=== PATIENT | female | born 1960 | race Caucasian/White ===

== ENCOUNTER → 2016-10-02 | Outpatient (CLI) | payer OTHER ==
[2016-02-22 15:00] VITALS: BP 140/72
[~2016-10-02] MED LIST: ALBU2.5V14 NEB; ARIP10TA13 PO; ASPI81TA2 PO; ATOR20TA PO; BREO ELLIPTA 11 EACH IH; CEFA1VIA2 IV; CELE200C PO; CITA20TA5 PO; CLON0.5T3 PO; CLON1TAB3 PO; CLON2TAB PO; CODE30SO PO; CYCL10TA2 PO; DICL100G7 TP; DIPH25CA58 PO; DOCU-27 PO; FAMO-63 PO; FURO-68 PO; FURO-69 PO; GADOBUTROL 7.5 MMOL/7.5 ML VIAL IV ONE; GUAI400T27 PO; HYDR-971 PO; HYDR1TAB14 PO; MELO7.5T5 PO; METO-269 PO; METO25TA4 PO; MONT10TA9 PO; MORP15TA3 PO; PANT40TA5 PO; POTA10TA12 PO; POTA20TA84 PO; PRED-220 PO; PRED20TA PO; RANO500T2 PO; ROFL500T7 PO; SUCR1TAB PO; TIOT18CA IH; TRAM50TA PO; TRAZ150T55 PO; ZOLP5TAB PO
--- NOTE | 2016-10-02 13:17 | RAD ---
MR ORBITS HISTORY: DIPLOPIA WITH INCREASED HEADACHES, NKI, NO SX HX, NO PRIORS, 6ML GADAVIST Technique: Sagittal T1, axial T2, and axial FLAIR images of the entire brain were obtained. Additional 3 mm axial and 4 mm coronal T1-weighted images were obtained through the region of the orbits. 3 mm coronal T2 and inversion recovery images were also obtained through the region of the orbits. 4 mm coronal and 3 mm axial T1 fat saturation images were obtained through the region of the orbits after the administration of intravenous gadolinium-based contrast material. Additional axial T1-weighted images through the entire brain were also obtained after the administration of intravenous contrast material. FINDINGS: The globes are unremarkable. There is no abnormality identified of the optic nerves. The optic nerves are symmetric, within normal limits for size, and without regions of abnormal enhancement seen. The extraocular muscles are not enlarged. The orbital fat is preserved. There is no compression at the orbital apex. No mass lesion is seen. Lacrimal glands are within normal limits. No abnormality of either cavernous sinus is identified. The chiasm is within normal limits without evidence of displacement or compression. No abnormality of the optic tracts is seen. No regions of abnormal signal are seen within the brain parenchyma. There is no abnormal enhancement identified. No restricted diffusion is seen to indicate an acute infarct. There is no evidence of intracranial hemorrhage. Specifically, no abnormal susceptibility is seen on gradient echo images to indicate a microhemorrhage. No extra-axial fluid collections are identified. There is no mass effect or midline shift. Ventricular size is within normal limits. Midline structures have a normal anatomic configuration. Pituitary gland and infundibulum are within normal limits. Basal cisterns are patent. Flow voids are preserved at the skull base. Cerebellum and posterior fossa structures are unremarkable. There is mucoperiosteal thickening of the left maxillary sinus and bilateral mastoid effusions. IMPRESSION: No acute or recent infarct. No abnormal enhancement or mass. No gross abnormality of the globes or orbits although there is degradation of detail from motion artifact on some of the orbital focused sequences. There is also normal appearance of the optic chiasm and optic pathways brain. Electronically signed by: Al Cerda MD (10/02/2016 1:13 PM)
== END | disposition home or self-care (01) ==
LOC: MRI 10:12
PROVIDERS: ATTEND Optometrist
DX: H53.2 Diplopia (principal)
CPT/HCPCS: 70553; A9585

== ENCOUNTER → 2017-01-09 | Outpatient (CLI) | payer OTHER ==
[2016-02-22 15:00] VITALS: BP 140/72
[~2017-01-09] MED LIST changes: -ARIP10TA13 PO; +ARIP10TA9 PO; +ASPI-630 PO; -ASPI81TA2 PO; +DICL100G18 TP; -DICL100G7 TP; +DOCU-109 PO; -DOCU-27 PO; -GADOBUTROL 7.5 MMOL/7.5 ML VIAL IV ONE; -GUAI400T27 PO; +GUAI400T63 PO; +TRAZ150T49 PO; -TRAZ150T55 PO
--- NOTE | 2017-01-09 14:50 | RAD ---
DATE: 01/09/2017 EXAM: DIGITAL SCREEN BILAT W/CAD HISTORY: Screening baseline exam COMPARISON: None available This study was interpreted with the benefit of Computerized Aided Detection (CAD). FINDINGS: Breast Density: SCATTERED The breast parenchyma shows scattered fibroglandular densities. Breast parenchyma level B. 2 small asymmetry is identified in the right outer breast best seen on cc view. A small mass or lymph node identified in the left inner lower breast. IMPRESSION: 2 small asymmetries identified in the right outer breast seen on the cc view and a small mass or lymph node identified in the left inner lower breast.. Recommend spot compression view of the right breast in CC, ML view and left breast in CC, MLO views . If this persists on the spot views, ultrasound is recommended. BI-RADS CATEGORY: 0 INCOMPLETE: NEEDS ADDITIONAL IMAGING EVALUATION AND/OR PRIOR MAMMOGRAMS FOR COMPARISON. RECOMMENDED FOLLOW-UP: ADD ADDITIONAL IMAGING PQRS compliance statement: Patient information was entered into a reminder system with a target due date immediate recall for the next mammogram. Mammography is a sensitive method for finding small breast cancers, but it does not detect them all and is not a substitute for careful clinical examination. A negative mammogram does not negate a clinically suspicious finding and should not result in delay in biopsying a clinically suspicious abnormality. "Our facility is accredited by the [employer] Mammography Program."
== END | disposition home or self-care (01) ==
LOC: MAMMO 13:00
DX: Z12.31 Encounter for screening mammogram for malignant neoplasm of breast (principal)
CPT/HCPCS: G0202; 77067

== ENCOUNTER → 2017-01-17 | Outpatient (CLI) | payer OTHER ==
[2016-02-22 15:00] VITALS: BP 140/72
--- NOTE | 2017-01-20 08:30 | RAD ---
DATE: 01/17/2018 EXAM: DIGITAL DIAGNOSTIC BILATERAL, BREAST BILATERAL HISTORY: Possible abnormality seen on screening COMPARISON: Screening examination 8 days earlier FINDINGS: Breast Density: . An ML view of the left breast was obtained as well as a coned compression view. Best seen on the cone compression cc view is a well-defined mass medially in the breast having very benign features mammography. There is a well-defined mass inferiorly in the breast on the ML view which likely corresponds to the finding on the cc view. In the right breast coned compression cc and MLO views were obtained as well as an ML view. There are well-defined densities in the upper outer aspect of the breast Targeted ultrasound of the breasts was performed. The right breast was examined from the 9 to the 12:00 position. There is a benign-appearing septated 11 mm mass at the 11:00 position of the breast approximately 1 cm from the nipple. This likely does not correspond to any mammographic finding. The left breast was examined from the C7 to the 8:00 position. There is a small hypoechoic mass seen 3 cm from the nipple having a benign appearance as on ultrasound measuring approximately 3 mm. IMPRESSION: Probable benign findings on ultrasound and mammography. Bilateral mammography is suggested in 6 months to document stability BI-RADS CATEGORY: 3 PROBABLE BENIGN FINDING(S-SHORT INTERVAL FOLLOW-UP SUGGESTED RECOMMENDED FOLLOW-UP: 6M 6 MONTH FOLLOW-UP PQRS compliance statement: Patient information was entered into a reminder system with a target due date 07/17/2017 for the next mammogram. Mammography is a sensitive method for finding small breast cancers, but it does not detect them all and is not a substitute for careful clinical examination. A negative mammogram does not negate a clinically suspicious finding and should not result in delay in biopsying a clinically suspicious abnormality. "Our facility is accredited by the [employer] Mammography Program." MTDD
== END | disposition home or self-care (01) ==
LOC: MAMMO 10:00
DX: R92.8 Other abnormal and inconclusive findings on diagnostic imaging of breast (principal)
CPT/HCPCS: 76641; G0204; 77066

== ENCOUNTER → 2017-03-14 | Day surgery (SDC) | payer OTHER ==
[~2017-03-14] MED LIST changes: -ALBU2.5V14 NEB; -ARIP10TA9 PO; -ASPI-630 PO; -ATOR20TA PO; -BREO ELLIPTA 11 EACH IH; -CEFA1VIA2 IV; -CELE200C PO; -CITA20TA5 PO; -CLON0.5T3 PO; -CLON1TAB3 PO; -CLON2TAB PO; -CODE30SO PO; -CYCL10TA2 PO; -DICL100G18 TP; -DIPH25CA58 PO; -DOCU-109 PO; -FAMO-63 PO; -FURO-68 PO; -FURO-69 PO; -GUAI400T63 PO; -HYDR-971 PO; -HYDR1TAB14 PO; +HYDROmorphone 2 MG/ML VIAL IV; +IV RINGERS,LACTATED 1000ML 1,000 ML IV; +LIDOCAINE 1% PF 2 ML VIAL. ID; -MELO7.5T5 PO; -METO-269 PO; -METO25TA4 PO; -MONT10TA9 PO; -MORP15TA3 PO; +MORPHINE SULFATE 4 MG/ML DISP.SYRIN. IV; -PANT40TA5 PO; -POTA10TA12 PO; -POTA20TA84 PO; -PRED-220 PO; -PRED20TA PO; +PROCHLORPERAZINE 10 MG/2 ML VIAL. IV; +PROPOFOL 20 ML IV; -RANO500T2 PO; -ROFL500T7 PO; -SUCR1TAB PO; -TIOT18CA IH; -TRAM50TA PO; -TRAZ150T49 PO; -ZOLP5TAB PO; +fentaNYL PF VIAL 100 MCG/2 ML VIAL IV
[2017-03-14] MEDS: IV RINGERS,LACTATED 1000ML 1,000 ML IV (09:18)
== END | disposition home or self-care (01) ==
LOC: ENDOS 08:40
DX: K22.2 Esophageal obstruction (principal); K29.50 Unspecified chronic gastritis without bleeding; K21.0 Gastro-esophageal reflux disease with esophagitis; D64.9 Anemia, unspecified; F41.9 Anxiety disorder, unspecified; M19.90 Unspecified osteoarthritis, unspecified site; F32.9 Major depressive disorder, single episode, unspecified; J44.9 Chronic obstructive pulmonary disease, unspecified; E78.00 Pure hypercholesterolemia, unspecified; I10 Essential (primary) hypertension; F17.210 Nicotine dependence, cigarettes, uncomplicated; Z80.3 Family history of malignant neoplasm of breast; Z82.49 Family history of ischemic heart disease and other diseases of the circulatory system; Z79.899 Other long term (current) drug therapy; Z91.040 Latex allergy status; Z88.2 Allergy status to sulfonamides; Z88.8 Allergy status to other drugs, medicaments and biological substances; Z98.890 Other specified postprocedural states
CPT/HCPCS: 43239; 88305; 88312; J2704

== ENCOUNTER 2017-05-26 05:58 | Emergency (ER) | payer OTHER ==
[2017-05-26] MEDS ORDERED: LIDOCAINE WITH 8.4% SOD BICARB 3 ML DISP.SYRIN. ×2 (06:20)
[2017-05-26] MEDS: DIPHTH,PERTUSS(ACELL),TET TOX 0.5 ML DISP.SYRIN. VAX IM ×2 (06:50)
[2017-05-26] MEDS: LIDOCAINE WITH 8.4% SOD BICARB 3 ML DISP.SYRIN. INJ ×2 (06:52)
[2017-05-26] MEDS: NEOMY/BACITR/POLYMYXIN OINT PACKET. TP ×2 (07:19)
[2017-05-26] MEDS: CEPHALEXIN 250 MG CAPSULE. PO ×2 (07:19)
== END 2017-05-26 07:46 | disposition home or self-care (01) ==
LOC: ER 05:58
DX: S81.012A Laceration without foreign body, left knee, initial encounter (principal); Z88.1 Allergy status to other antibiotic agents; Z88.2 Allergy status to sulfonamides; Z88.5 Allergy status to narcotic agent; Z91.040 Latex allergy status; E78.00 Pure hypercholesterolemia, unspecified; G89.29 Other chronic pain; J44.9 Chronic obstructive pulmonary disease, unspecified; K21.9 Gastro-esophageal reflux disease without esophagitis; I50.9 Heart failure, unspecified; W18.39XA Other fall on same level, initial encounter; Y93.89 Activity, other specified; Y99.8 Other external cause status; Y92.89 Other specified places as the place of occurrence of the external cause
CPT/HCPCS: 12002; 73562; 90471; 90715; 99284-25

== ENCOUNTER 2017-08-01 09:32 | Inpatient (IN) | payer OTHER ==
[2017-08-01] MEDS: IPRATRPIUM/ALBUTEROL 0.5/2.5MG 3 ML NEBU. NEB (10:00)
[2017-08-01 10:03] LABS: ADD MAN DIFF? NO
[2017-08-01 10:05] LABS: BASO # 0.1 x10^3/uL (0.0-0.2); BASO % 1 % (0-3); EOS # 0.2 x10^3/uL (0.0-0.7); EOS % 3 % (0-3); HEMATOCRIT 36.7 % (36.0-47.0); HEMOGLOBIN 11.5 g/dL (12.0-15.5); LYMPH # 2.3 x10^3/uL (1.0-4.8); LYMPH % 28 % (24-48); MEAN CORPUSCULAR HEMOGLOBIN 26 pg (25-35); MEAN CORPUSCULAR HGB CONC 31 g/dL (31-37); MEAN CORPUSCULAR VOLUME 81 fL (79-100); MONO # 0.8 x10^3/uL (0.0-1.1); MONO % 10 % (0-9); NEUT # 4.8 x10^3uL (1.8-7.7); NEUT % 59 % (31-73); PLATELET COUNT 170 x10^3/uL (140-400); RED BLOOD COUNT 4.53 x10^6/uL (3.50-5.40); WHITE BLOOD COUNT 8.2 x10^3/uL (4.0-11.0)
[2017-08-01 10:25] LABS: BASE EXCESS ABG 4 mmol/L (-3-3); HCO3 ABG 30 mmol/L (21-28); PCO2 ABG 47 mmHg (35-46); PH ABG 7.42 (7.35-7.45); PO2 ABG 62 mmHg (75-108); SAT O2 ABG 91 % (92-99)
[2017-08-01 10:26] LABS: TROPONINI < 0.017 ng/mL (0.000-0.055)
[2017-08-01 10:29] LABS: NT-PRO BNP 100 pg/mL (0-124)
[2017-08-01 10:30] LABS: FIO2 ABG 28
[2017-08-01] MEDS: IV NORMAL SALINE 1000ML BAG 1,000 ML IV ×3 (10:33→16:06)
[2017-08-01 10:41] LABS: ANION GAP 4 (6-14); BLOOD UREA NITROGEN 5 mg/dL (7-20); BUN/CREATININE RATIO 6 (6-20); CALCIUM 8.6 mg/dL (8.5-10.1); CARBON DIOXIDE 32 mmol/L (21-32); CHLORIDE 102 mmol/L (98-107); CREATININE 0.9 mg/dL (0.6-1.0); GFR 64.3; GLUCOSE 81 mg/dL (70-99); POTASSIUM 3.4 mmol/L (3.5-5.1); SODIUM 138 mmol/L (136-145)
[2017-08-01 10:47] LABS: ALBUMIN/GLOBULIN RATIO 0.8 (1.0-1.7); ALK PHOS 74 U/L (46-116); ALT (SGPT) 38 U/L (14-59); AST (SGOT) 18 U/L (15-37); MAGNESIUM 1.8 mg/dL (1.8-2.4); TOTAL BILIRUBIN 0.5 mg/dL (0.2-1.0); TOTAL PROTEIN 6.7 g/dL (6.4-8.2)
[2017-08-01 11:05] LABS: BILIRUBIN,URINE NEGATIVE (NEG); CLARITY,URINE CLEAR; COLOR,URINE AMBER; GLUCOSE,URINE NEGATIVE (NEG); NITRITE,URINE NEGATIVE (NEG); PROTEIN,URINE NEGATIVE (NEG-TRACE); UROBILINOGEN,URINE 0.2 mg/dL (0.2 mg/dL)
[2017-08-01 11:19] LABS: BACTERIA,URINE 0 /HPF (0-FEW); HYALINE CASTS, URINE MODERATE /HPF; RBC,URINE 0 /HPF (0-2); SQUAMOUS EPITHELIAL CELL,UR FEW /LPF; WBC,URINE OCC /HPF (0-4)
[2017-08-01] MEDS: traMADol 50 MG TABLET PO ×2 (14:00→14:19)
[2017-08-01] MEDS: diphenhydrAMINE HCL 25 MG CAPSULE PO ×2 (14:00→22:18)
[2017-08-01] MEDS ORDERED: PANTOPRAZOLE 40 MG TABLET.DR. PO (14:00)
[2017-08-01] MEDS: ASPIRIN CHEWABLE 81 MG TABLET. PO (14:00)
[2017-08-01] MEDS ORDERED: CYCLOBENZAPRINE 10 MG TABLET. PO (14:00)
[2017-08-01] MEDS: RANOLAZINE 500 MG TAB.ER.12H PO (14:00)
[2017-08-01] MEDS: clonazePAM 1 MG TABLET PO ×2 (14:00→22:14)
[2017-08-01] MEDS: DICLOFENAC SODIUM 1% TOPICAL GEL 100GM TUBE. TP ×3 (14:00→22:13)
[2017-08-01] MEDS: ARIPiprazole 5 MG TABLET PO (14:00)
[2017-08-01] MEDS: ROFLUMILAST 500 MCG TABLET. PO (14:00)
[2017-08-01] MEDS: MORPHINE ER 15 MG TABLET.ER PO ×2 (14:00→22:14)
[2017-08-01] MEDS: DOCUSATE SODIUM 100 MG CAPSULE. PO (14:00)
[2017-08-01] MEDS ORDERED: CITALOPRAM 20 MG TABLET. PO (14:00)
[2017-08-01] MEDS: predniSONE 10 MG TABLET PO (14:00)
[2017-08-01] MEDS ORDERED: ONDANSETRON PF 4 MG/2 ML VIAL. IV (14:15)
[2017-08-01] MEDS ORDERED: PROCHLORPERAZINE 10 MG/2 ML VIAL. IV (14:30)
[2017-08-01] MEDS ORDERED: PROMETHAZINE 12.5 MG TABLET. PO (14:30)
[2017-08-01] MEDS ORDERED: PROMETHAZINE 12.5 MG in IV DEXTROSE 5% 50 ML IV (14:30)
[2017-08-01] MEDS: PROCHLORPERAZINE 5 MG TABLET. PO (14:57)
[2017-08-01] MEDS: ALBUTEROL SULFATE 2.5 MG/3 ML NEBU. NEB ×2 (15:08→19:45)
[2017-08-01] MEDS: IOHEXOL 240 MG/ML 50ML VIAL. IV (16:00)
[2017-08-01] MEDS ORDERED: SUCRALFATE 1 GM TABLET. PO (16:30)
[2017-08-01] MEDS ORDERED: POTASSIUM CHLORIDE 10 MEQ TABLET.ER. PO (17:00)
[2017-08-01 17:10] LABS: TROPONINI < 0.017 ng/mL (0.000-0.055)
[2017-08-01] MEDS: POTASSIUM CHLORIDE 20 MEQ TABLET.ER. PO (17:58)
[2017-08-01] MEDS: CETIRIZINE HCL 10 MG TABLET. PO (17:58)
[2017-08-01] MEDS: FLUTICASONE 50MCG/NASAL SPRAY 16GM BOTTLE. NS (18:01)
[2017-08-01] MEDS: IOHEXOL 300 MG/ML 100ML VIAL. IV (18:02)
[2017-08-01] MEDS: BUDESONIDE 0.5 MG/2 ML NEBU. NEB (19:45)
[2017-08-01] MEDS: tiZANidine 4 MG TABLET. PO (22:13)
[2017-08-01] MEDS: ATORVASTATIN CALCIUM 20 MG TABLET PO (22:13)
[2017-08-01] MEDS: FAMOTIDINE 20 MG TABLET. PO (22:14)
[2017-08-01] MEDS: traZODone 50 MG TABLET. PO (22:14)
[2017-08-01] MEDS: MONTELUKAST SODIUM 10 MG TABLET. PO (22:14)
[2017-08-02] MEDS: IV NORMAL SALINE 1000ML BAG 1,000 ML IV (03:00)
[2017-08-02] MEDS: traMADol 50 MG TABLET PO ×2 (03:00→14:52)
[2017-08-02] MEDS: ALBUTEROL SULFATE 2.5 MG/3 ML NEBU. NEB ×2 (08:14→11:33)
[2017-08-02] MEDS: BUDESONIDE 0.5 MG/2 ML NEBU. NEB (08:14)
[2017-08-02] MEDS ORDERED: NON FORMULARY ITEM (Fluticasone/Vilanterol (Breo Ellipta 100-25 Mcg Inh) 1 PUFF) IH (09:00)
[2017-08-02] MEDS ORDERED: CITALOPRAM HYDROBROMIDE PO (09:00)
[2017-08-02 09:15] LABS: ANION GAP 9 (6-14); BLOOD UREA NITROGEN 3 mg/dL (7-20); CALCIUM 7.4 mg/dL (8.5-10.1); CARBON DIOXIDE 25 mmol/L (21-32); CHLORIDE 111 mmol/L (98-107); CREATININE 0.8 mg/dL (0.6-1.0); GFR 73.7; GLUCOSE 125 mg/dL (70-99); POTASSIUM 3.6 mmol/L (3.5-5.1); SODIUM 145 mmol/L (136-145)
[2017-08-02] MEDS: DOCUSATE SODIUM 100 MG CAPSULE. PO (09:28)
[2017-08-02] MEDS: clonazePAM 1 MG TABLET PO (09:28)
[2017-08-02] MEDS: ASPIRIN CHEWABLE 81 MG TABLET. PO (09:28)
[2017-08-02] MEDS: tiZANidine 4 MG TABLET. PO (09:28)
[2017-08-02] MEDS: ROFLUMILAST 500 MCG TABLET. PO (09:28)
[2017-08-02] MEDS: CETIRIZINE HCL 10 MG TABLET. PO (09:28)
[2017-08-02] MEDS: CITALOPRAM 20 MG TABLET. PO (09:29)
[2017-08-02] MEDS: MORPHINE ER 15 MG TABLET.ER PO (09:29)
[2017-08-02] MEDS: ARIPiprazole 5 MG TABLET PO (09:29)
[2017-08-02] MEDS: predniSONE 10 MG TABLET PO (09:30)
[2017-08-02] MEDS: FLUTICASONE 50MCG/NASAL SPRAY 16GM BOTTLE. NS (12:03)
[2017-08-02] MEDS: DICLOFENAC SODIUM 1% TOPICAL GEL 100GM TUBE. TP ×2 (12:03→13:00)
[2017-08-02] MEDS ORDERED: diphenhydrAMINE HCL 25 MG CAPSULE PO (21:00)
== END 2017-08-02 15:00 | disposition home or self-care (01) | DRG 314 ==
LOC: ER 09:32 → 5 SOUTH 11:33
DX: I95.9 Hypotension, unspecified (principal); G93.41 Metabolic encephalopathy; E44.0 Moderate protein-calorie malnutrition; I11.0 Hypertensive heart disease with heart failure; J96.11 Chronic respiratory failure with hypoxia; I50.9 Heart failure, unspecified; A08.4 Viral intestinal infection, unspecified; E78.00 Pure hypercholesterolemia, unspecified; E86.0 Dehydration; E87.6 Hypokalemia; F41.0 Panic disorder [episodic paroxysmal anxiety]; G89.29 Other chronic pain; I25.10 Atherosclerotic heart disease of native coronary artery without angina pectoris; J32.0 Chronic maxillary sinusitis; J44.9 Chronic obstructive pulmonary disease, unspecified; F32.9 Major depressive disorder, single episode, unspecified; M19.90 Unspecified osteoarthritis, unspecified site; K21.9 Gastro-esophageal reflux disease without esophagitis; Z82.49 Family history of ischemic heart disease and other diseases of the circulatory system; Z99.81 Dependence on supplemental oxygen; Z88.2 Allergy status to sulfonamides; Z88.8 Allergy status to other drugs, medicaments and biological substances; Z88.1 Allergy status to other antibiotic agents; Z91.040 Latex allergy status; Z68.26 Body mass index [BMI] 26.0-26.9, adult
CPT/HCPCS: 36415; 36600; 70450; 71045; 74177; 80048; 80053; 81001; 82533; 82805; 83605; 83735; 83880; 84484; 85025; 85610; 87045; 93005; 94640; 94760; J7030; J7512; J7613; J7620; J7626; Q0163; Q0164; Q9966; Q9967

== ENCOUNTER → 2017-09-24 | Outpatient (CLI) | payer OTHER ==
[2017-09-24] MEDS: REGADENOSON 0.4 MG/5 ML DISP.SYRIN. IV (11:38)
== END | disposition home or self-care (01) ==
LOC: NM 09:07
DX: R07.89 Other chest pain (principal); F17.210 Nicotine dependence, cigarettes, uncomplicated; I13.0 Hypertensive heart and chronic kidney disease with heart failure and stage 1 through stage 4 chronic kidney disease, or unspecified chronic kidney disease; I50.9 Heart failure, unspecified; N18.4 Chronic kidney disease, stage 4 (severe); J44.9 Chronic obstructive pulmonary disease, unspecified
CPT/HCPCS: 78452; 93017; 96374; 96375; 96376; A9500; J2785

== ENCOUNTER 2017-11-24 14:22 | Inpatient (IN) | payer OTHER ==
[2017-11-24] MEDS: fentaNYL PF VIAL 100 MCG/2 ML VIAL IV (14:45)
[2017-11-24 14:53] LABS: BILIRUBIN,URINE NEGATIVE (NEG); CLARITY,URINE CLEAR; COLOR,URINE YELLOW; GLUCOSE,URINE NEGATIVE (NEG); NITRITE,URINE NEGATIVE (NEG); PROTEIN,URINE NEGATIVE (NEG-TRACE); UROBILINOGEN,URINE 0.2 mg/dL (0.2 mg/dL)
[2017-11-24 15:06] LABS: BACTERIA,URINE FEW /HPF (0-FEW); BASE EXCESS ABG 14 mmol/L (-3-3); HCO3 ABG 42 mmol/L (21-28); HYALINE CASTS, URINE MODERATE /HPF; PH ABG 7.42 (7.35-7.45); PO2 ABG 63 mmHg (65-108); RBC,URINE OCC /HPF (0-2); SAT O2 ABG 90 % (92-99); SQUAMOUS EPITHELIAL CELL,UR MOD /LPF; YEAST,URINE PRESENT /HPF
[2017-11-24 15:10] LABS: PCO2 ABG 67 mmHg (35-46)
[2017-11-24] MEDS: methylPREDNISolone SOD SUCC PF 125 MG/2 ML VIAL. IV ×2 (15:21→20:57)
[2017-11-24 15:22] LABS: BASO % 0 % (0-3); EOS % 0 % (0-3); HEMATOCRIT 40.1 % (36.0-47.0); HEMOGLOBIN 12.7 g/dL (12.0-15.5); LYMPH # 0.5 x10^3/uL (1.0-4.8); LYMPH % 8 % (24-48); MEAN CORPUSCULAR HEMOGLOBIN 26 pg (25-35); MEAN CORPUSCULAR HGB CONC 32 g/dL (31-37); MEAN CORPUSCULAR VOLUME 81 fL (79-100); MONO # 0.4 x10^3/uL (0.0-1.1); MONO % 6 % (0-9); NEUT # 5.9 x10^3uL (1.8-7.7); NEUT % 86 % (31-73); PLATELET COUNT 163 x10^3/uL (140-400); RED BLOOD COUNT 4.95 x10^6/uL (3.50-5.40); RED CELL DISTRIBUTION WIDTH 17.2 % (11.5-14.5); WHITE BLOOD COUNT 6.9 x10^3/uL (4.0-11.0)
[2017-11-24] MEDS: IPRATRPIUM/ALBUTEROL 0.5/2.5MG 3 ML NEBU. NEB ×2 (15:25→19:32)
[2017-11-24 15:27] LABS: ADD MAN DIFF? YES
[2017-11-24 15:35] LABS: ALBUMIN 3.5 g/dL (3.4-5.0); ALK PHOS 78 U/L (46-116); ALT (SGPT) 17 U/L (14-59); ANION GAP 6 (6-14); AST (SGOT) 14 U/L (15-37); BLOOD UREA NITROGEN 13 mg/dL (7-20); BUN/CREATININE RATIO 12 (6-20); CALCIUM 9.2 mg/dL (8.5-10.1); CARBON DIOXIDE 42 mmol/L (21-32); CHLORIDE 95 mmol/L (98-107); CREATININE 1.1 mg/dL (0.6-1.0); GFR 50.8; GLUCOSE 124 mg/dL (70-99); SODIUM 143 mmol/L (136-145); TOTAL BILIRUBIN 0.4 mg/dL (0.2-1.0); TOTAL PROTEIN 6.9 g/dL (6.4-8.2)
[2017-11-24 15:37] LABS: POTASSIUM 2.2 mmol/L (3.5-5.1)
[2017-11-24 15:43] LABS: TROPONINI < 0.017 ng/mL (0.000-0.055)
[2017-11-24 15:52] LABS: MAGNESIUM 1.7 mg/dL (1.8-2.4)
[2017-11-24] MEDS: IV NORMAL SALINE 1000ML BAG 1,000 ML IV ×2 (15:53→22:00)
[2017-11-24 15:54] LABS: PROTHROMBIN TIME PATIENT 12.9 SEC (11.7-14.0)
[2017-11-24] MEDS: POTASSIUM CHLORIDE 20 MEQ TABLET.ER. PO (16:07)
[2017-11-24 16:11] LABS: CKMB MASS < 0.5 ng/mL (0.0-3.6); CREATINE KINASE 22 U/L (26-192)
[2017-11-24 16:11] LABS: NT-PRO BNP 75 pg/mL (0-124)
[2017-11-24 16:12] LABS: % LYMPHS 8 % (24-48); % MONOS 6 % (0-10); % SEGS 86 % (35-66)
[2017-11-24 16:13] LABS: PLT ESTIMATE ADEQUATE (ADEQUATE)
[2017-11-24] MEDS: POTASSIUM CHLORIDE 10MEQ 100 ML IV ×4 (16:18→22:00)
[2017-11-24] MEDS: POTASSIUM CHLORIDE 20 MEQ/15 ML ORAL LIQUID. PO (16:22)
[2017-11-24] MEDS ORDERED: ALBUTEROL SULFATE 2.5 MG/3 ML NEBU. NEB (17:45)
[2017-11-24] MEDS ORDERED: ONDANSETRON ODT 4 MG TAB.RAPDIS. PO (18:15)
[2017-11-24] MEDS: cefTRIAXone IV Push 1 GM VIAL. IVP (18:58)
[2017-11-24] MEDS: MAGNESIUM SULFATE 1GM 100 ML IV (18:59)
[2017-11-24] MEDS: MONTELUKAST SODIUM 10 MG TABLET. PO (20:55)
[2017-11-24] MEDS: traZODone 50 MG TABLET. PO (20:55)
[2017-11-24] MEDS: clonazePAM 1 MG TABLET PO (20:55)
[2017-11-24] MEDS: ATORVASTATIN CALCIUM 20 MG TABLET PO (20:56)
[2017-11-24] MEDS: tiZANidine 4 MG TABLET. PO (20:56)
[2017-11-24] MEDS: CELECOXIB 100 MG CAPSULE. PO (20:56)
[2017-11-24] MEDS: MORPHINE ER 15 MG TABLET.ER PO (20:57)
[2017-11-24] MEDS: FAMOTIDINE 20 MG TABLET. PO (20:57)
[2017-11-25] MEDS: traMADol 50 MG TABLET PO (02:31)
[2017-11-25 04:52] LABS: ADD MAN DIFF? NO
[2017-11-25 04:57] LABS: BASO % 0 % (0-3); EOS % 0 % (0-3); HEMATOCRIT 36.7 % (36.0-47.0); HEMOGLOBIN 11.8 g/dL (12.0-15.5); LYMPH # 0.4 x10^3/uL (1.0-4.8); LYMPH % 7 % (24-48); MEAN CORPUSCULAR HEMOGLOBIN 26 pg (25-35); MEAN CORPUSCULAR HGB CONC 32 g/dL (31-37); MEAN CORPUSCULAR VOLUME 81 fL (79-100); MONO # 0.1 x10^3/uL (0.0-1.1); MONO % 2 % (0-9); NEUT % 91 % (31-73); PLATELET COUNT 153 x10^3/uL (140-400); RED BLOOD COUNT 4.53 x10^6/uL (3.50-5.40); RED CELL DISTRIBUTION WIDTH 17.7 % (11.5-14.5); WHITE BLOOD COUNT 5.5 x10^3/uL (4.0-11.0)
[2017-11-25 05:25] LABS: ALBUMIN 2.9 g/dL (3.4-5.0); ALK PHOS 67 U/L (46-116); ALT (SGPT) 15 U/L (14-59); ANION GAP 5 (6-14); AST (SGOT) 9 U/L (15-37); BLOOD UREA NITROGEN 9 mg/dL (7-20); BUN/CREATININE RATIO 10 (6-20); CALCIUM 8.7 mg/dL (8.5-10.1); CARBON DIOXIDE 38 mmol/L (21-32); CHLORIDE 101 mmol/L (98-107); CREATININE 0.9 mg/dL (0.6-1.0); GFR 64.1; GLUCOSE 145 mg/dL (70-99); MAGNESIUM 2.4 mg/dL (1.8-2.4); POTASSIUM 3.1 mmol/L (3.5-5.1); SODIUM 144 mmol/L (136-145); TOTAL BILIRUBIN 0.3 mg/dL (0.2-1.0); TOTAL PROTEIN 5.9 g/dL (6.4-8.2)
[2017-11-25] MEDS: CITALOPRAM 20 MG TABLET. PO (08:32)
[2017-11-25] MEDS: ASPIRIN CHEWABLE 81 MG TABLET. PO (08:33)
[2017-11-25] MEDS: clonazePAM 1 MG TABLET PO ×2 (08:33→20:29)
[2017-11-25] MEDS: FUROSEMIDE 20 MG TABLET PO (08:33)
[2017-11-25] MEDS: MORPHINE ER 15 MG TABLET.ER PO ×2 (08:33→20:29)
[2017-11-25] MEDS: diphenhydrAMINE HCL 25 MG CAPSULE PO (08:33)
[2017-11-25] MEDS: POTASSIUM CHLORIDE 20 MEQ TABLET.ER. PO (08:33)
[2017-11-25] MEDS: PANTOPRAZOLE 40 MG TABLET.DR. PO (08:34)
[2017-11-25] MEDS: tiZANidine 4 MG TABLET. PO ×2 (08:34→20:28)
[2017-11-25] MEDS: DOCUSATE SODIUM 100 MG CAPSULE. PO (08:34)
[2017-11-25] MEDS: ROFLUMILAST 500 MCG TABLET. PO (08:34)
[2017-11-25] MEDS: CELECOXIB 100 MG CAPSULE. PO ×2 (08:40→20:29)
[2017-11-25] MEDS: methylPREDNISolone SOD SUCC PF 125 MG/2 ML VIAL. IV ×2 (08:46→20:30)
[2017-11-25] MEDS: IPRATRPIUM/ALBUTEROL 0.5/2.5MG 3 ML NEBU. NEB ×4 (09:04→19:53)
[2017-11-25] MEDS: ARIPiprazole 5 MG TABLET PO (12:37)
[2017-11-25] MEDS ORDERED: ONDANSETRON PF 4 MG/2 ML VIAL. IV (15:15)
[2017-11-25] MEDS ORDERED: NICOTINE 21MG PATCH. TD (15:15)
[2017-11-25] MEDS ORDERED: ONDANSETRON ODT 4 MG TAB.RAPDIS. PO (15:15)
[2017-11-25] MEDS: IV NORMAL SALINE 1000ML BAG 1,000 ML IV (15:57)
[2017-11-25 17:21] LABS: MRSA BY PCR Negative (Negative)
[2017-11-25] MEDS: FAMOTIDINE 20 MG TABLET. PO (20:28)
[2017-11-25] MEDS: traZODone 50 MG TABLET. PO (20:28)
[2017-11-25] MEDS: MONTELUKAST SODIUM 10 MG TABLET. PO (20:29)
[2017-11-25] MEDS: ATORVASTATIN CALCIUM 20 MG TABLET PO (20:29)
[2017-11-26 04:39] LABS: ADD MAN DIFF? NO
[2017-11-26 04:52] LABS: BASO % 0 % (0-3); EOS % 0 % (0-3); HEMATOCRIT 37.1 % (36.0-47.0); HEMOGLOBIN 11.9 g/dL (12.0-15.5); LYMPH # 0.5 x10^3/uL (1.0-4.8); LYMPH % 5 % (24-48); MEAN CORPUSCULAR HEMOGLOBIN 26 pg (25-35); MEAN CORPUSCULAR HGB CONC 32 g/dL (31-37); MEAN CORPUSCULAR VOLUME 82 fL (79-100); MONO # 0.1 x10^3/uL (0.0-1.1); MONO % 1 % (0-9); NEUT # 9.8 x10^3uL (1.8-7.7); NEUT % 94 % (31-73); PLATELET COUNT 150 x10^3/uL (140-400); RED BLOOD COUNT 4.54 x10^6/uL (3.50-5.40); WHITE BLOOD COUNT 10.4 x10^3/uL (4.0-11.0)
[2017-11-26 05:21] LABS: ALBUMIN 2.8 g/dL (3.4-5.0); ALK PHOS 62 U/L (46-116); ALT (SGPT) 17 U/L (14-59); ANION GAP 5 (6-14); AST (SGOT) 11 U/L (15-37); BLOOD UREA NITROGEN 7 mg/dL (7-20); BUN/CREATININE RATIO 7 (6-20); CALCIUM 8.8 mg/dL (8.5-10.1); CARBON DIOXIDE 35 mmol/L (21-32); CHLORIDE 103 mmol/L (98-107); GFR 56.7; GLUCOSE 167 mg/dL (70-99); POTASSIUM 3.2 mmol/L (3.5-5.1); SODIUM 143 mmol/L (136-145); TOTAL BILIRUBIN 0.2 mg/dL (0.2-1.0); TOTAL PROTEIN 5.7 g/dL (6.4-8.2)
[2017-11-26] MEDS: IPRATRPIUM/ALBUTEROL 0.5/2.5MG 3 ML NEBU. NEB ×4 (07:21→19:43)
[2017-11-26] MEDS: ASPIRIN CHEWABLE 81 MG TABLET. PO (08:44)
[2017-11-26] MEDS: CITALOPRAM 20 MG TABLET. PO (08:44)
[2017-11-26] MEDS: POTASSIUM CHLORIDE 20 MEQ TABLET.ER. PO (08:44)
[2017-11-26] MEDS: tiZANidine 4 MG TABLET. PO ×2 (08:45→21:23)
[2017-11-26] MEDS: DOCUSATE SODIUM 100 MG CAPSULE. PO (08:45)
[2017-11-26] MEDS: PANTOPRAZOLE 40 MG TABLET.DR. PO (08:45)
[2017-11-26] MEDS: CELECOXIB 100 MG CAPSULE. PO ×2 (08:45→21:22)
[2017-11-26] MEDS: clonazePAM 1 MG TABLET PO ×2 (08:45→21:23)
[2017-11-26] MEDS: diphenhydrAMINE HCL 25 MG CAPSULE PO (08:46)
[2017-11-26] MEDS: MORPHINE ER 15 MG TABLET.ER PO ×2 (08:46→21:23)
[2017-11-26] MEDS: ARIPiprazole 5 MG TABLET PO (08:46)
[2017-11-26] MEDS: ROFLUMILAST 500 MCG TABLET. PO (08:46)
[2017-11-26] MEDS: methylPREDNISolone SOD SUCC PF 125 MG/2 ML VIAL. IV ×2 (08:46→21:23)
[2017-11-26] MEDS: traMADol 50 MG TABLET PO (18:06)
[2017-11-26] MEDS: FAMOTIDINE 20 MG TABLET. PO (21:22)
[2017-11-26] MEDS: MONTELUKAST SODIUM 10 MG TABLET. PO (21:22)
[2017-11-26] MEDS: traZODone 50 MG TABLET. PO (21:22)
[2017-11-26] MEDS: ATORVASTATIN CALCIUM 20 MG TABLET PO (21:23)
[2017-11-26] MEDS: OXYMETAZOLINE 0.05% NASAL SPRAY 30ML BOTTLE. NS (21:23)
[2017-11-26 21:31] LABS: BASE EXCESS ABG 8 mmol/L (-3-3); HCO3 ABG 32 mmol/L (21-28); PCO2 ABG 41 mmHg (35-46); PH ABG 7.51 (7.35-7.45); PO2 ABG 77 mmHg (65-108); SAT O2 ABG 94 % (92-99)
[2017-11-26 21:33] LABS: FIO2 ABG 34
[2017-11-27] MEDS: traMADol 50 MG TABLET PO ×2 (00:48→13:31)
[2017-11-27 06:06] LABS: ADD MAN DIFF? NO
[2017-11-27 06:16] LABS: BASO % 0 % (0-3); EOS % 0 % (0-3); HEMATOCRIT 33.5 % (36.0-47.0); HEMOGLOBIN 10.9 g/dL (12.0-15.5); LYMPH # 0.5 x10^3/uL (1.0-4.8); LYMPH % 6 % (24-48); MEAN CORPUSCULAR HEMOGLOBIN 27 pg (25-35); MEAN CORPUSCULAR HGB CONC 33 g/dL (31-37); MEAN CORPUSCULAR VOLUME 81 fL (79-100); MONO # 0.3 x10^3/uL (0.0-1.1); MONO % 3 % (0-9); NEUT % 90 % (31-73); PLATELET COUNT 137 x10^3/uL (140-400); RED BLOOD COUNT 4.13 x10^6/uL (3.50-5.40); RED CELL DISTRIBUTION WIDTH 18.3 % (11.5-14.5); WHITE BLOOD COUNT 8.8 x10^3/uL (4.0-11.0)
[2017-11-27 06:53] LABS: ALBUMIN 2.7 g/dL (3.4-5.0); ALK PHOS 59 U/L (46-116); ALT (SGPT) 21 U/L (14-59); ANION GAP 5 (6-14); AST (SGOT) 17 U/L (15-37); BLOOD UREA NITROGEN 10 mg/dL (7-20); BUN/CREATININE RATIO 13 (6-20); CALCIUM 8.6 mg/dL (8.5-10.1); CARBON DIOXIDE 34 mmol/L (21-32); CHLORIDE 104 mmol/L (98-107); CREATININE 0.8 mg/dL (0.6-1.0); GFR 73.4; GLUCOSE 145 mg/dL (70-99); POTASSIUM 3.4 mmol/L (3.5-5.1); SODIUM 143 mmol/L (136-145); TOTAL BILIRUBIN 0.2 mg/dL (0.2-1.0); TOTAL PROTEIN 5.4 g/dL (6.4-8.2)
[2017-11-27] MEDS: IPRATRPIUM/ALBUTEROL 0.5/2.5MG 3 ML NEBU. NEB ×3 (07:35→14:52)
[2017-11-27] MEDS: PANTOPRAZOLE 40 MG TABLET.DR. PO (08:04)
[2017-11-27] MEDS: POTASSIUM CHLORIDE 20 MEQ TABLET.ER. PO (08:04)
[2017-11-27] MEDS: DOCUSATE SODIUM 100 MG CAPSULE. PO (09:39)
[2017-11-27] MEDS: ASPIRIN CHEWABLE 81 MG TABLET. PO (09:39)
[2017-11-27] MEDS: ROFLUMILAST 500 MCG TABLET. PO (09:40)
[2017-11-27] MEDS: clonazePAM 1 MG TABLET PO (09:40)
[2017-11-27] MEDS: diphenhydrAMINE HCL 25 MG CAPSULE PO (09:40)
[2017-11-27] MEDS: CELECOXIB 100 MG CAPSULE. PO (09:40)
[2017-11-27] MEDS: ARIPiprazole 5 MG TABLET PO (09:40)
[2017-11-27] MEDS: tiZANidine 4 MG TABLET. PO (09:40)
[2017-11-27] MEDS: CITALOPRAM 20 MG TABLET. PO (09:40)
[2017-11-27] MEDS: MORPHINE ER 15 MG TABLET.ER PO (09:41)
[2017-11-27] MEDS: OXYMETAZOLINE 0.05% NASAL SPRAY 30ML BOTTLE. NS (09:41)
[2017-11-27] MEDS: methylPREDNISolone SOD SUCC PF 125 MG/2 ML VIAL. IV (09:41)
== END 2017-11-27 16:07 | disposition home or self-care (01) | DRG 189 ==
LOC: 5 SOUTH 11-25 14:03 → ER 14:22 → 1 WEST ICU 16:00
PROC: 5A09357 Assistance with Respiratory Ventilation, Less than 24 Consecutive Hours, Continuous Positive Airway Pressure (ICD-10-PCS; principal; 2017-11-24)
DX: J96.22 Acute and chronic respiratory failure with hypercapnia (principal); J44.1 Chronic obstructive pulmonary disease with (acute) exacerbation; E87.6 Hypokalemia; J96.21 Acute and chronic respiratory failure with hypoxia; E78.00 Pure hypercholesterolemia, unspecified; E78.5 Hyperlipidemia, unspecified; F17.290 Nicotine dependence, other tobacco product, uncomplicated; F31.9 Bipolar disorder, unspecified; F41.0 Panic disorder [episodic paroxysmal anxiety]; I11.0 Hypertensive heart disease with heart failure; I50.9 Heart failure, unspecified; K21.9 Gastro-esophageal reflux disease without esophagitis; G89.29 Other chronic pain; M19.90 Unspecified osteoarthritis, unspecified site; M54.9 Dorsalgia, unspecified; Z88.2 Allergy status to sulfonamides; Z83.3 Family history of diabetes mellitus; Z99.81 Dependence on supplemental oxygen; Z88.8 Allergy status to other drugs, medicaments and biological substances; Z88.1 Allergy status to other antibiotic agents; Z91.040 Latex allergy status
CPT/HCPCS: 36415; 36600; 71045; 80053; 81001; 82553; 82805; 83735; 83880; 84484; 85007; 85025; 85610; 87086; 87641; 93005; 94640; 94660; 94760; 96361; 96374; 97116-GP; 97161-GP; 97166-GO; 99285; 99285-25; J0696; J2930; J3475; J3480; J7030; J7620; Q0163

== ENCOUNTER 2018-04-28 09:20 | Emergency (ER) | payer OTHER ==
[~2018-04-28] VITALS: Ht 157.5 cm; Wt 54.4 kg
[~2018-04-28 09:20] MED LIST changes: +ALBU2.5V14 NEB; +ARIP10TA9 PO; +ASPI-630 PO; +ATOR20TA PO; +BREO ELLIPTA 11 EACH IH; +BREO ELLIPTA 21 EACH IH; +CEFA1VIA2 IV; +CELE200C PO; +CEPH-264 PO; +CITA20TA6 PO; +CITA40TA5 PO; +CLON0.5T11 PO; +CLON1TAB11 PO; +CLON2TAB PO; +CODE30SO PO; +CYCL10TA2 PO; +DICL100G18 TP; +DIPH25CA58 PO; +DOCU-109 PO; +FAMO-63 PO; +FURO-68 PO; +FURO-69 PO; +FURO20TA3 PO; +GUAI400T63 PO; +HYDR-3164 PO; +HYDR1TAB14 PO; -HYDROmorphone 2 MG/ML VIAL IV; +IPRA3AMP29 NEB; -IV RINGERS,LACTATED 1000ML 1,000 ML IV; +KETO15CR2 TP; -LIDOCAINE 1% PF 2 ML VIAL. ID; +MELO7.5T5 PO; +METO-269 PO; +METO25TA4 PO; +MONT10TA9 PO; +MORP15TA3 PO; -MORPHINE SULFATE 4 MG/ML DISP.SYRIN. IV; +ONDA4TAB10 SL; +PANT40TA5 PO; +POTA10TA12 PO; +POTA20TA82 PO; +POTA20TA84 PO; +PRED-220 PO; +PRED20TA PO; -PROCHLORPERAZINE 10 MG/2 ML VIAL. IV; -PROPOFOL 20 ML IV; +RANI300T3 PO; +RANO500T2 PO; +ROFL500T7 PO; +SUCR1TAB PO; +TIOT18CA IH; +TIZA4TAB PO; +TRAM50TA PO; +TRAZ150T49 PO; +ZOLP5TAB PO; -fentaNYL PF VIAL 100 MCG/2 ML VIAL IV
--- NOTE | 2018-04-28 09:55 | PHYS DOC ---
Past Medical History Past Medical History: Anxiety, Arthritis, Bipolar, CHF, Constipation, COPD, Depression, GERD, High Cholesterol, Hypertension, Other Additional Past Medical Histor: Panic attacks, she use 02 at home,CHRONIC PAIN, BACK PAIN Past Surgical History: No Surgical History, Other Additional Past Surgical Histo: unknown Smoking: Cigarettes (e-cigarette) Additional Information: SMOKES E-CIGARETTES Alcohol Use: None Drug Use: None Adult General Chief Complaint Chief Complaint: MECHANICAL FALL HPI HPI Patient is a 57 year old female brought to the ER via EMS with complaints of left elbow pain and a skin tear to left upper arm after tripping and falling at home. Pt denies any LOC, head, neck, or back pain. Pt states she thinks that she tripped and fell. She denies any chest pain, dizziness, shortness of breath , or headache prior to the fall. Pt states that she was up cleaning her house when the injury occurred. Pt is noted to have a healing skin tear to the left forearm and dark purple bruises to bilateral forearms. Pt states she got the bruises from frequently bumping into things at home. She denies any abuse or safety concerns. EMS reported that pt was not wearing her home O2 upon their arrival. Review of Systems Review of Systems Constitutional: Denies fever or chills [] HENT: Denies nasal congestion or sore throat [] Respiratory: Reports chronic cough and shortness of breath hx of COPD Cardiovascular: Denies chest pain or palpitations GI: Denies abdominal pain, nausea, vomiting, or diarrhea [] Musculoskeletal: Denies back pain; reports left elbow pain Integument: Reports skin tear to upper left arm after fall. Reports bruising to bilateral forearms that is not new. Neurologic: Denies headache, focal weakness or sensory changes [] All other systems were reviewed and found to be within normal limits, except as documented in this note. Current Medications Current Medications Current Medications Medications (Trade) Dose Ordered Sig/Cheyanne Start Time Stop Time Status Last Admin Dose Admin Albuterol/ Ipratropium (Duoneb) 3 ml 1X ONCE 04/28/18 10:15 04/28/18 10:16 DC 04/28/18 10:31 3 ML Allergies Allergies Allergies Coded Allergies Type Severity Reaction Last Updated Verified Sulfa (Sulfonamide Antibiotics) Allergy Intermediate 03/14/17 Yes ciprofloxacin Allergy Intermediate 03/14/17 Yes latex Allergy Intermediate 03/14/17 Yes Physical Exam Physical Exam Constitutional: Well developed, well nourished, no acute distress, non-toxic appearance. [] HENT: Normocephalic, atraumatic, bilateral external ears normal, nose normal. [] Eyes: conjunctiva normal, no discharge. [] Neck: Normal range of motion, no tenderness, supple, no stridor. [] Cardiovascular:Heart rate irregular rhythm, no murmur [] Lungs & Thorax: Bilateral breath sounds diminished with expiratory wheezes throughout. Skin: Warm, dry, no erythema; pt has dark purple bruises to bilateral forearms that appear old, there is a 7 cm long skin tear to left upper arm, no active bleeding, a healing skin tear is noted to left forearm under coban dressing that was in place on arrival. Back: No tenderness, Extremities: No cyanosis, no clubbing, ROM intact, no edema; L elbow tenderness to palpation, no crepitus or deformity. [] Neurologic: Alert and oriented X 3, normal motor function, normal sensory function, no focal deficits noted. [] Psychologic: Affect normal, judgement normal, mood normal. [] Current Patient Data Vital Signs Vital Signs Date Time Temp Pulse Resp B/P (MAP) Pulse Ox O2 Delivery O2 Flow Rate FiO2 04/28/18 10:33 Nasal Cannula 2.0 04/28/18 09:58 74 04/28/18 09:20 98.1 24 140/70 (93) 70 98.1 EKG EKG SR with PACs no STEMI read by Dr. Otto[] Radiology/Procedures Radiology/Procedures PROCEDURE: CHEST PA & LATERAL Chest, 2 views, 04/28/2017: HISTORY: Diminished lung sounds Comparison is made to a study from 11/24/2017. The heart size is within normal limits. There is calcific plaquing of the aorta. Mild left basilar linear opacities are compatible with atelectasis and/or scarring. No consolidating infiltrate is seen. There is no evidence of pleural fluid. IMPRESSION: Mild left basilar linear atelectasis and/or scarring. PROCEDURE: ELBOW LEFT 3V Left elbow, 3 views, 04/28/2018: HISTORY: Fall, injury No fracture or dislocation is identified. No significant joint effusion is seen. There is minimal subcutaneous edema posteriorly. IMPRESSION: No acute bony abnormality is detected. PROCEDURE: CT HEAD WO CONTRAST Examination: CT HEAD WO CONTRAST History: FALL,TRIPPED OVER FEET AND FELL IN HALLWAY, HIT WALL AND COFFEE TABLE, FEELS PAIN ALL OVER Comparison/Correlation: 08/01/2017 CT head without contrast Findings: Axial images of the head were obtained without contrast. Atrophy is present. No intracranial hemorrhage, midline shift, or mass effect. Chronic left maxillary sinusitis is seen. No depressed fracture. Impression: No intracranial hemorrhage. Pt was given a duoneb treatment in the ER by RT, lungs were clear after treatment in all white. The left arm skin tear was cleansed and dressing was applied by nursing staff. [] Course & Med Decision Making Course & Med Decision Making Pertinent Labs and Imaging studies reviewed. (See chart for details) [] Dragon Disclaimer Dragon Disclaimer This electronic medical record was generated, in whole or in part, using a voice recognition dictation system. Departure Departure Impression: Primary Impression: Skin tear of left upper arm without complication Additional Impressions: Left elbow pain Fall Disposition: HOME, SELF-CARE Condition: STABLE Referrals: DIRK PARIKH (PCP) Patient Instructions: Elbow Contusion, [id number], Fall Prevention and Home Safety, [id number], Skin Tear Care, [id number] Additional Instructions: You may take tylenol or ibuprofen as needed for pain. Apply ice and elevate left elbow as needed. Follow up with your doctor in 1-2 days to have wound rechecked. Return to the ER if symptoms worsen. Problem Qualifiers Primary Impression: Skin tear of left upper arm without complication Encounter type: initial encounter Qualified Codes: S41.112A - Laceration without foreign body of left upper arm, initial encounter Additional Impressions: Fall Encounter type: initial encounter Qualified Codes: W19.XXXA - Unspecified fall, initial encounter DELFINO VELASQUEZ APRN Apr 28, 2018 09:55
--- NOTE | 2018-04-28 10:02 | EKG ---
[facility] [address] [place] [address] Test Date: 2018-04-28 Test Time: 09:37:35 Pat Name: FRANCK FAIRBANKS Department: Room: Gender: F [employer]: : 1960 Requested By: DELFINO VELASQUEZ Order Number: [id number] Reading MD: Glenn Phillips Measurements Intervals [place] Rate: 67 P: 75 NV: 162 QRS: 74 QRSD: 76 T: 60 QT: 464 QTc: 494 Interpretive Statements SINUS RHYTHM ATRIAL PREMATURE COMPLEX(ES) QRS(T) CONTOUR ABNORMALITY CONSIDER ANTEROLATERAL MYOCARDIAL DAMAGE PROLONGED QT ABNORMAL ECG Electronically Signed On 05-01-2018 17:18:20 [employer] PROCESS by Glenn Phillips
[2018-04-28] MEDS ORDERED: IPRATRPIUM/ALBUTEROL 0.5/2.5MG 3 ML NEBU. NEB ONE (10:15)
--- NOTE | 2018-04-28 10:27 | RAD ---
Left elbow, 3 views, 04/28/2018: HISTORY: Fall, injury No fracture or dislocation is identified. No significant joint effusion is seen. There is minimal subcutaneous edema posteriorly. IMPRESSION: No acute bony abnormality is detected. Electronically signed by: Trevon Perez MD (04/28/2018 10:23 AM) [facility]
--- NOTE | 2018-04-28 10:45 | RAD ---
Chest, 2 views, 04/28/2017: HISTORY: Diminished lung sounds Comparison is made to a study from 11/24/2017. The heart size is within normal limits. There is calcific plaquing of the aorta. Mild left basilar linear opacities are compatible with atelectasis and/or scarring. No consolidating infiltrate is seen. There is no evidence of pleural fluid. IMPRESSION: Mild left basilar linear atelectasis and/or scarring. Electronically signed by: Trevon Perez MD (04/28/2018 10:41 AM) [facility]
--- NOTE | 2018-04-28 10:50 | RAD ---
Examination: CT HEAD WO CONTRAST History: FALL,TRIPPED OVER FEET AND FELL IN HALLWAY, HIT WALL AND COFFEE TABLE, FEELS PAIN ALL OVER Comparison/Correlation: 08/01/2017 CT head without contrast Findings: Axial images of the head were obtained without contrast. Atrophy is present. No intracranial hemorrhage, midline shift, or mass effect. Chronic left maxillary sinusitis is seen. No depressed fracture. Impression: No intracranial hemorrhage. Electronically signed by: Jg Meza MD (04/28/2018 10:46 AM) [facility]
[2018-04-28 11:06] VITALS: BP 141/63
== END 2018-04-28 11:45 | disposition home or self-care (01) ==
LOC: ER 09:20
DX: S41.112A Laceration without foreign body of left upper arm, initial encounter (principal); R94.31 Abnormal electrocardiogram [ECG] [EKG]; F41.9 Anxiety disorder, unspecified; J44.9 Chronic obstructive pulmonary disease, unspecified; K21.9 Gastro-esophageal reflux disease without esophagitis; E78.00 Pure hypercholesterolemia, unspecified; I11.0 Hypertensive heart disease with heart failure; I50.9 Heart failure, unspecified; Z88.2 Allergy status to sulfonamides; Z88.1 Allergy status to other antibiotic agents; Z91.040 Latex allergy status; W01.0XXA Fall on same level from slipping, tripping and stumbling without subsequent striking against object, initial encounter; Y93.E9 Activity, other interior property and clothing maintenance; Y92.099 Unspecified place in other non-institutional residence as the place of occurrence of the external cause; Y99.8 Other external cause status
CPT/HCPCS: 70450; 71046; 73080; 93005; 94640; 99284; J7620